=== PATIENT | female | born 1950 | race Caucasian/White ===

== ENCOUNTER 2022-07-19 15:22 | Emergency (ER) | payer OTHER ==
[~2022-07-19] VITALS: Ht 160 cm; Wt 72.7 kg
[2022-07-19] MEDS ORDERED: ondansetron 4mg rapidly disintigrating tab PO ONE (21:45)
[2022-07-19] MEDS ORDERED: HYDROcodone/acetaminophen 10/325mg tab PO ONE (21:45)
[2022-07-19 22:08] VITALS: BP 148/69
[2022-07-19 23:06] LABS: CLARITY,URINE CLOUDY (Clear); COLOR,URINE YELLOW (Yellow); GLUCOSE, URINE >=1000 mg/dl (Neg); KETONES,URINE NEGATIVE (Neg); LEUKOCYTE ESTERASE ,URINE TRACE (Neg); NITRITES, URINE POSITIVE (Neg); OCCULT BLOOD,URINE TRACE-INTACT (Neg); PROTEIN,URINE TRACE mg/dl (Neg); UROBILINOGEN,URINE 0.2 E.U/dL (0.2-1.0)
[2022-07-19 23:09] LABS: UA COLLECTION TYPE STRAIGHT CATH
[2022-07-19 23:16] LABS: BACTERIA,URINE 4+ /HPF (Neg); MUCUS STRANDS FEW /LPF (Neg); SQUAMOUS EPITHELIAL CELL,UR FEW /LPF (FEW)
[2022-07-19 23:17] LABS: WBC CLUMPS,URINE FEW /HPF (NEGATIVE)
[2022-07-19 23:18] LABS: AMORPHOUS URATES 4+; WBC,URINE 30-50 /HPF (0-4)
[2022-07-19] MEDS ORDERED: cephalexin 250mg capsule PO ONE (23:25)
[2022-07-19] MEDS ORDERED: CEPH-585 PO (23:27)
== END 2022-07-19 23:52 | disposition home or self-care (01) ==
LOC: ER 15:23
DX: T83.518A Infection and inflammatory reaction due to other urinary catheter, initial encounter (principal); N39.0 Urinary tract infection, site not specified; E11.9 Type 2 diabetes mellitus without complications; Z90.710 Acquired absence of both cervix and uterus; Z87.891 Personal history of nicotine dependence
CPT/HCPCS: 81001; 99284